=== PATIENT | male | born 1985 | race Caucasian/White ===

== ENCOUNTER 2018-04-02 13:00 | Outpatient (RCR) | payer MEDICAID ==
[2015-07-29 11:41] VITALS: BP 154/112
[~2018-04-02 13:00] MED LIST: ADDERALL20 MG PO; KETOROLAC TROME10 MG PO; NORCO 325 MG-51 TA1 PO
== END 2018-06-08 | disposition home or self-care (01) ==
LOC: PT
DX: Z47.89 Encounter for other orthopedic aftercare (principal)

== ENCOUNTER 2018-12-18 14:00 | Outpatient (RCR) | payer MEDICAID ==
[2015-07-29 11:41] VITALS: BP 154/112
== END 2018-12-18 14:30 ==
LOC: PT 14:00
DX: Z47.1 Aftercare following joint replacement surgery (principal); Z98.890 Other specified postprocedural states

== ENCOUNTER → 2020-07-25 | Outpatient (CLI) | payer MEDICAID ==
[2015-07-29 11:41] VITALS: BP 154/112
== END ==
LOC: LAB 07:42
DX: J02.9 Acute pharyngitis, unspecified (principal); R53.83 Other fatigue; R50.9 Fever, unspecified; Z20.828 Contact with and (suspected) exposure to other viral communicable diseases

== ENCOUNTER 2024-03-22 17:31 | Inpatient (IN) | payer OTHER ==
[~2024-03-22] VITALS: Ht 177.8 cm; Wt 122.6 kg
[2024-03-22] MEDS ORDERED: LOSARTAN POTASS50 M1 PO (17:38)
[2024-03-22] MEDS ORDERED: Albuterol/Ipratropium 3 MG-0.5 MG/3 ML Neb Soln IH ONE ×2 (18:15→19:30)
[2024-03-22] MEDS ORDERED: Iohexol 350 - 100 ML VIAL IV ONE (19:20)
[2024-03-22] MEDS ORDERED: methylPREDNISolone Sod Succ 125 MG/2 ML VIAL IV ONE (19:30)
[2024-03-22] MEDS ORDERED: cefTRIAXone 1 G in Water For Injection,Sterile 10 ML IV ONE (20:00)
[2024-03-22] MEDS ORDERED: Doxycycline Hyclate 100 MG in NS 250 ML IV ONE (20:00)
[2024-03-22 20:13] VITALS: BP 157/82
[2024-03-22] MEDS ORDERED: Acetaminophen 325 MG TAB PO PRN (20:15)
[2024-03-22] MEDS ORDERED: methylPREDNISolone Sod Succ 125 MG/2 ML VIAL IV SCH (21:00)
[2024-03-22] MEDS ORDERED: Albuterol/Ipratropium 3 MG-0.5 MG/3 ML Neb Soln IH SCH (21:00)
[2024-03-22] MEDS ORDERED: Nicotine 21 MG DAILY PATCH TD SCH (21:32)
[2024-03-23 02:00] VITALS: BP 151/83
[2024-03-23 05:57] LABS: HEMATOCRIT 42.9 % (42.0-52.0); HEMOGLOBIN 14.3 g/dL (13.5-18.0); LYMPH# 1.06 K/mm3 (1.50-4.00); MEAN CELL VOLUME 89 fl (78-100); MEAN CORPUSCULAR HEMOGLOBIN 30 pg (27-31); MEAN CORPUSCULAR HGB CONC 33 g/dL (33-37); MEAN PLATELET VOLUME 8.8 fl (7.4-10.4); MONO # 0.13 K/mm3 (0.20-0.80); NEU # 6.62 K/mm3 (1.40-6.50); PLATELET COUNT 357 K/mm3 (130-400); RED BLOOD COUNT 4.83 M/mm3 (4.20-5.60); RED CELL DISTRIBUTION WIDTH 12.1 % (11.5-14.5); WHITE BLOOD COUNT 7.9 K/mm3 (4.8-10.8)
[2024-03-23 06:03] LABS: ALBUMIN 3.9 g/dL (3.5-5.0)
[2024-03-23 06:05] LABS: CALCIUM 10.2 mg/dL (8.3-10.5)
[2024-03-23 06:06] LABS: TOTAL PROTEIN 7.8 g/dL (6.4-8.3)
[2024-03-23 06:08] LABS: TOTAL BILIRUBIN 0.3 mg/dL (0.2-1.2)
[2024-03-23 06:14] VITALS: BP 155/86
[2024-03-23] MEDS ORDERED: Doxycycline Hyclate 100 MG in NS 250 ML IV SCH (08:00)
[2024-03-23] MEDS ORDERED: Losartan 50 MG TAB PO SCH (09:00)
[2024-03-23] MEDS ORDERED: AMPHETAMINE PO SCH (09:00)
[2024-03-23] MEDS ORDERED: DEXTROAMPHETAMINE PO SCH (09:00)
[2024-03-23 10:07] VITALS: BP 173/111
[2024-03-23 13:52] VITALS: BP 146/79
[2024-03-23] MEDS ORDERED: AMOXICILLIN 50500 MG PO (17:16)
[2024-03-23] MEDS ORDERED: VIBRAMYCIN HYC100 MG PO (17:17)
[2024-03-23] MEDS ORDERED: IPRATROPIUM BROM3 M1 IH (17:17)
[2024-03-23] MEDS ORDERED: PREDNISONE20 MG PO (17:18)
[2024-03-23] MEDS ORDERED: cefTRIAXone 1 G in Water For Injection,Sterile 10 ML IV SCH (20:30)
== END 2024-03-23 16:45 | disposition left against medical advice (07) | DRG 195 ==
LOC: ED 17:31 → MED/SURG 19:58
PROVIDERS: ADMIT Physician Assistant
DX: J18.9 Pneumonia, unspecified organism (principal); R09.02 Hypoxemia; I10 Essential (primary) hypertension; G89.29 Other chronic pain
CPT/HCPCS: J0696; J1650; J2919; J7050; Q9967